=== PATIENT | female | born 1995 | race Caucasian/White ===

== ENCOUNTER 2017-12-10 03:09 | Inpatient (IN) | payer OTHER ==
[~2017-12-10] VITALS: Ht 149.9 cm; Wt 80.7 kg
[~2017-12-10 03:09] MED LIST: PREN-546 PO
[2017-12-10] MEDS ORDERED: LACTATED RINGERS 1,000 ML IV SCH (03:43)
[2017-12-10] MEDS ORDERED: PROMETHAZINE 25 MG/ML VIAL IVP PRN (03:45)
[2017-12-10] MEDS ORDERED: OXYTOCIN 10 UNITS/ML VIAL IM ONE (03:45)
[2017-12-10] MEDS ORDERED: NALBUPHINE 10 MG/ML AMP IVP PRN (03:45)
[2017-12-10] MEDS ORDERED: METHYLERGONOVINE 0.2 MG/ML AMP IM PRN ×2 (03:45→11:30)
[2017-12-10] MEDS ORDERED: OXYTOCIN 20 UNITS in LACTATED RINGERS 1,000 ML IV SCH (03:45)
[2017-12-10] MEDS ORDERED: MISOPROSTOL 25 MCG TAB VG PRN (03:45)
[2017-12-10 04:05] LABS: APPEARANCE,URINE SL CLOUDY (CLEAR); BILIRUBIN,URINE 1+ (NEGATIVE); BLOOD, URINE NEGATIVE (NEGATIVE); COLOR,URINE YELLOW (YELLOW); LEUKOCYTE ESTERASE ,URINE TRACE (NEGATIVE); NITRITE, URINE NEGATIVE (NEGATIVE); UGLUCOSE NEGATIVE (NEGATIVE)
[2017-12-10 04:05] LABS: BASOPHILS # (AUTO) 0.1 K/uL (0.00-0.22); BASOPHILS % (AUTO) 0.5 % (0.0-2.0); EOSINOPHILS # (AUTO) 0.1 K/uL (0-0.4); EOSINOPHILS % (AUTO) 0.8 % (0.0-4.0); HEMATOCRIT 35.5 % (36-48); HEMOGLOBIN 11.8 g/dL (12.0-16.0); LYMPHOCYTES # (AUTO) 3.2 K/uL (2.5-16.5); LYMPHOCYTES % (AUTO) 27.1 % (20.5-51.1); MEAN CORPUSCULAR HEMOGLOBIN 30 pg (27-31); MEAN CORPUSCULAR HGB CONC 33 g/dL (33-37); MEAN CORPUSCULAR VOLUME 91.5 fL (80-94); MONOCYTES % (AUTO) 8.1 % (1.7-9.3); NEUTROPHILS # (AUTO) 7.4 K/uL (1.8-7.7); NEUTROPHILS % (AUTO) 63.5 % (42.2-75.2); PLATELET COUNT (AUTO) 248 K/uL (140-450); RED BLOOD CELL COUNT(AUTO) 3.88 MIL/uL (4.20-5.40); RED CELL DISTRIBUTION WIDTH 13.5 % (11.6-13.7); WHITE BLOOD COUNT (AUTO) 11.7 K/uL (4.8-10.8)
[2017-12-10] MEDS ORDERED: MISOPROSTOL 25 MCG TAB ONE (04:24)
[2017-12-10 04:26] VITALS: BP 93/48
[2017-12-10 04:32] LABS: RBC,URINE 3-10 (FEW) /HPF (0-5)
[2017-12-10] MEDS ORDERED: PROMETHAZINE 25 MG/ML VIAL ONE (07:14)
[2017-12-10] MEDS ORDERED: NALBUPHINE 10 MG/ML AMP ONE (07:14)
[2017-12-10] MEDS ORDERED: OXYTOCIN 10 UNITS/ML VIAL ONE (09:14)
[2017-12-10] MEDS ORDERED: LIDOCAINE MPF 1% - 5 mL VIAL 0 ML ONE (09:15)
[2017-12-10] MEDS ORDERED: LIDOCAINE 2% 1000 MG/50 ML VIAL INJ ONE (09:16)
[2017-12-10] MEDS ORDERED: NALOXONE 0.4 MG/ML VIAL ONE (09:26)
[2017-12-10] MEDS ORDERED: HYDROcodone/APAP 5/325 MG 1 TAB TAB PO PRN (11:30)
[2017-12-10] MEDS ORDERED: MEASLES, MUMPS, AND RUBELLA 1 VIAL SQVAC PRN (11:30)
[2017-12-10] MEDS ORDERED: BENZOCAINE/MENTHOL 20%-0.5% 60 GM CAN TP PRN (11:30)
[2017-12-10] MEDS ORDERED: IBUPROFEN 800 MG TAB PO PRN (11:30)
[2017-12-10] MEDS ORDERED: OXYTOCIN 10 UNITS/ML VIAL IM PRN (11:30)
[2017-12-10] MEDS ORDERED: TEMAZEPAM 15 MG CAP PO PRN (11:30)
--- NOTE | 2017-12-10 11:43 | NUR ---
PATIENT HAS BEEN SCREENED AND CATEGORIZED LOW NUTRITION RISK. PATIENT WILL BE SEEN WITHIN 7 DAYS OF ADMISSION. 12/16/[address]
[2017-12-10] MEDS ORDERED: DOCUSATE SOD/SENNA 50/8.6 MG 1 TAB PO SCH (21:00)
[2017-12-11 06:39] LABS: HEMATOCRIT 31.5 % (36-48); HEMOGLOBIN 10.8 g/dL (12.0-16.0)
[2017-12-11] MEDS: oxyCODONE/APAP 5/325 MG 1 TAB TAB PO PRN ×2 (14:00→22:53)
== END 2017-12-12 17:55 | disposition home or self-care (01) | DRG 560 ==
LOC: MLD 03:09 → MFCC 12:15
PROVIDERS: ADMIT Obstetrics & Gynecology; ATTEND Obstetrics & Gynecology
PROC: 10E0XZZ Delivery of Products of Conception, External Approach (ICD-10-PCS; principal; 2017-12-10)
PROC: 3E0P7VZ Introduction of Hormone into Female Reproductive, Via Natural or Artificial Opening (ICD-10-PCS; 2017-12-10)
PROC: 10907ZC Drainage of Amniotic Fluid, Therapeutic from Products of Conception, Via Natural or Artificial Opening (ICD-10-PCS; 2017-12-10)
PROC: 3E0234Z Introduction of Serum, Toxoid and Vaccine into Muscle, Percutaneous Approach (ICD-10-PCS; 2017-12-10)
DX: O89.4 Spinal and epidural anesthesia-induced headache during the puerperium (principal); Z23 Encounter for immunization; Z3A.39 39 weeks gestation of pregnancy; Z37.0 Single live birth
CPT/HCPCS: 36415; 59200; 59409; 81001; 85018; 85025; 86592; 86886; 86900; 86901; 87086; 90715; J2001; J2300; J2310; J2550; J2590; J7120